=== PATIENT | male | born 1975 | race Caucasian/White ===

== ENCOUNTER 2018-10-25 08:00 | Outpatient (CLI) | payer BC ==
[2018-10-25 08:29] LABS: BASOPHILS # (AUTO) 0.1 10^3/uL (0.0-0.1); BASOPHILS % (AUTO) 0.9 %; EOSINOPHILS # (AUTO) 0.4 10^3/uL (0.0-0.7); EOSINOPHILS % (AUTO) 4.8 %; LYMPHOCYTES # (AUTO) 2.7 10^3/uL (1.5-3.5); LYMPHOCYTES % (AUTO) 35.3 %; MEAN CORPUSCULAR HEMOGLOBIN 28.4 pg (27.0-31.0); MEAN CORPUSCULAR HGB CONC 32.6 g/dL (32.0-36.0); MEAN PLATELET VOLUME 8.8 fL (7.4-11.4); MONOCYTES # (AUTO) 0.7 10^3/uL (0.0-1.0); NEUTROPHILS # (AUTO) 3.8 10^3/uL (1.5-6.6); NEUTROPHILS % (AUTO) 49.7 %; PLT - PLATELET COUNT 291 10^3/uL (130-450); RED BLOOD COUNT 4.93 10^6/uL (4.70-6.10); RED CELL DISTRIBUTION WIDTH 12.8 % (12.0-15.0); WHITE BLOOD COUNT 7.5 x10^3/uL (4.8-10.8)
[2018-10-25 08:52] LABS: ALBUMIN 4.2 g/dL (3.2-5.5); ALBUMIN/GLOBULIN RATIO 1.3 (1.0-2.2); ALKALINE PHOSPHATASE 41 IU/L (42-121); ALT ALANINE AMINOTRANSFERASE 18 IU/L (10-60); AST ASPARTATE AMINOTRANSFERASE 17 IU/L (10-42); BILIRUBIN,TOTAL 0.9 mg/dL (0.2-1.0); BUN - BLOOD UREA NITROGEN 18 mg/dL (6-20); CARBON DIOXIDE - CO2 29 mmol/L (21-32); CHLORIDE 99 mmol/L (101-111); CHOL/HDL RATIO 4.8 (<5.0); CHOLESTEROL 215 mg/dL; GFR - MDRD 82 (>89); GLUCOSE 97 mg/dL (70-100); HDL CHOLESTEROL 45 mg/dL; LDL CHOLESTEROL,CALCULATED 137 mg/dL; SODIUM 139 mmol/L (135-145); TOTAL PROTEIN 7.4 g/dL (6.7-8.2); VLDL CHOLESTEROL 33 mg/dL
== END 2018-10-25 23:59 | disposition home or self-care (01) ==
LOC: LAB 08:00
PROVIDERS: ATTEND Nurse Practitioner
DX: E78.1 Pure hyperglyceridemia (principal); I10 Essential (primary) hypertension; E29.1 Testicular hypofunction; R40.0 Somnolence; F41.8 Other specified anxiety disorders
CPT/HCPCS: 36415; 80053; 80061; 83721; 84403; 84443; 85025

== ENCOUNTER 2019-10-07 11:37 | Outpatient (CLI) | payer OTHER ==
[2019-10-07 12:27] LABS: BASOPHILS # (AUTO) 0.1 10^3/uL (0.0-0.1); BASOPHILS % (AUTO) 0.8 %; EOSINOPHILS # (AUTO) 0.3 10^3/uL (0.0-0.7); EOSINOPHILS % (AUTO) 4.6 %; HGB - HEMOGLOBIN 14.1 g/dL (14.0-18.0); LYMPHOCYTES # (AUTO) 1.9 10^3/uL (1.5-3.5); LYMPHOCYTES % (AUTO) 27.2 %; MEAN CORPUSCULAR HEMOGLOBIN 29.6 pg (27.0-31.0); MEAN CORPUSCULAR HGB CONC 34.1 g/dL (32.0-36.0); MEAN CORPUSCULAR VOLUME 86.8 fL (80.0-94.0); MEAN PLATELET VOLUME 9.3 fL (7.4-11.4); MONOCYTES # (AUTO) 0.7 10^3/uL (0.0-1.0); MONOCYTES % (AUTO) 10.2 %; NEUTROPHILS % (AUTO) 56.6 %; PLT - PLATELET COUNT 352 10^3/uL (130-450); RED BLOOD COUNT 4.77 10^6/uL (4.70-6.10); RED CELL DISTRIBUTION WIDTH 12.9 % (12.0-15.0); WHITE BLOOD COUNT 7.1 x10^3/uL (4.8-10.8)
[2019-10-07 12:44] LABS: ALBUMIN 4.1 g/dL (3.2-5.5); ALBUMIN/GLOBULIN RATIO 1.2 (1.0-2.2); ALKALINE PHOSPHATASE 47 IU/L (42-121); ALT ALANINE AMINOTRANSFERASE 20 IU/L (10-60); AST ASPARTATE AMINOTRANSFERASE 19 IU/L (10-42); BILIRUBIN,TOTAL 0.8 mg/dL (0.2-1.0); BUN - BLOOD UREA NITROGEN 12 mg/dL (6-20); CARBON DIOXIDE - CO2 29 mmol/L (21-32); CHLORIDE 99 mmol/L (101-111); CHOL/HDL RATIO 5.7 (<5.0); CHOLESTEROL 256 mg/dL; GLUCOSE 105 mg/dL (70-100); HDL CHOLESTEROL 45 mg/dL; LDL CHOLESTEROL,CALCULATED 180 mg/dL; SODIUM 138 mmol/L (135-145); TOTAL PROTEIN 7.4 g/dL (6.7-8.2); VALPROIC ACID (DEPAKOTE) 20.8 ug/mL; VLDL CHOLESTEROL 31 mg/dL
== END 2019-10-07 11:38 | disposition home or self-care (01) ==
LOC: LAB 11:37
PROVIDERS: ATTEND Nurse Practitioner
DX: I10 Essential (primary) hypertension (principal); E78.1 Pure hyperglyceridemia; Z79.899 Other long term (current) drug therapy; F41.8 Other specified anxiety disorders
CPT/HCPCS: 36415; 80053; 80061; 80164; 83721; 85025

== ENCOUNTER 2020-01-27 12:51 | Outpatient (CLI) | payer OTHER | END 2020-01-27 12:52 | disposition home or self-care (01) | LOC: COV 12:51 | PROVIDERS: ATTEND Family Medicine | DX: Z20.828 Contact with and (suspected) exposure to other viral communicable diseases (principal) ==

== ENCOUNTER 2020-02-02 12:47 | Outpatient (CLI) | payer OTHER | END 2020-02-02 12:48 | disposition home or self-care (01) | LOC: COV 12:47 | PROVIDERS: ATTEND Family Medicine | DX: Z20.828 Contact with and (suspected) exposure to other viral communicable diseases (principal) ==

== ENCOUNTER 2020-05-22 10:41 | Outpatient (CLI) | payer OTHER ==
[2020-05-22 12:31] LABS: BASOPHILS # (AUTO) 0.1 10^3/uL (0.0-0.1); BASOPHILS % (AUTO) 1.2 %; EOSINOPHILS # (AUTO) 0.4 10^3/uL (0.0-0.7); HGB - HEMOGLOBIN 14.7 g/dL (14.0-18.0); LYMPHOCYTES # (AUTO) 1.5 10^3/uL (1.5-3.5); LYMPHOCYTES % (AUTO) 19.6 %; MEAN CORPUSCULAR HEMOGLOBIN 28.9 pg (27.0-31.0); MEAN CORPUSCULAR HGB CONC 33.8 g/dL (32.0-36.0); MEAN CORPUSCULAR VOLUME 85.6 fL (80.0-94.0); MEAN PLATELET VOLUME 9.8 fL (7.4-11.4); MONOCYTES # (AUTO) 0.6 10^3/uL (0.0-1.0); MONOCYTES % (AUTO) 8.3 %; NEUTROPHILS % (AUTO) 65.2 %; PLT - PLATELET COUNT 348 10^3/uL (130-450); RED BLOOD COUNT 5.08 10^6/uL (4.70-6.10); WHITE BLOOD COUNT 7.6 x10^3/uL (4.8-10.8)
[2020-05-22 12:42] LABS: CREATININE 0.8 mg/dL (0.6-1.2)
== END 2020-05-22 23:59 | disposition home or self-care (01) ==
LOC: LAB.N 10:41
PROVIDERS: ATTEND Physician Assistant Medical
DX: R42 Dizziness and giddiness (principal); E29.1 Testicular hypofunction
CPT/HCPCS: 36415; 80048; 84153; 84403; 85025

== ENCOUNTER 2020-07-19 10:02 | Outpatient (CLI) | payer OTHER | END 2020-07-19 10:03 | disposition home or self-care (01) | LOC: LAB.N 10:02 | PROVIDERS: ATTEND Family Medicine | DX: Z01.812 Encounter for preprocedural laboratory examination (principal); Z20.822 Contact with and (suspected) exposure to COVID-19 ==

== ENCOUNTER 2020-08-09 | Emergency (ER) | payer OTHER ==
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
== END 2020-08-09 20:47 | disposition home or self-care (01) ==
CPT/HCPCS: 99283

== ENCOUNTER 2020-08-09 19:22 | Outpatient (CLI) | payer OTHER | END 2020-08-09 19:23 | disposition critical access hospital (66) | LOC: EMS 19:22 | DX: S61.512A Laceration without foreign body of left wrist, initial encounter (principal); S71.112A Laceration without foreign body, left thigh, initial encounter; W45.8XXA Other foreign body or object entering through skin, initial encounter; Y93.89 Activity, other specified | CPT/HCPCS: A0425; A0429 ==

== ENCOUNTER 2020-08-14 21:40 | Outpatient (CLI) | payer OTHER ==
[2020-08-14 21:56] LABS: BASOPHILS # (AUTO) 0.1 10^3/uL (0.0-0.1); BASOPHILS % (AUTO) 1.4 %; EOSINOPHILS # (AUTO) 0.4 10^3/uL (0.0-0.7); EOSINOPHILS % (AUTO) 4.5 %; HCT - HEMATOCRIT 41.1 % (42.0-52.0); HGB - HEMOGLOBIN 14.2 g/dL (14.0-18.0); LYMPHOCYTES # (AUTO) 1.5 10^3/uL (1.5-3.5); LYMPHOCYTES % (AUTO) 19.2 %; MEAN CORPUSCULAR HGB CONC 34.5 g/dL (32.0-36.0); MEAN CORPUSCULAR VOLUME 83.9 fL (80.0-94.0); MONOCYTES # (AUTO) 0.8 10^3/uL (0.0-1.0); MONOCYTES % (AUTO) 9.7 %; NEUTROPHILS # (AUTO) 5.1 10^3/uL (1.5-6.6); NEUTROPHILS % (AUTO) 64.8 %; PLT - PLATELET COUNT 354 10^3/uL (130-450); RED CELL DISTRIBUTION WIDTH 13.3 % (12.0-15.0); WHITE BLOOD COUNT 7.8 x10^3/uL (4.8-10.8)
== END 2020-08-14 21:41 | disposition home or self-care (01) ==
LOC: LAB 21:40
PROVIDERS: ATTEND Family Medicine
DX: E29.1 Testicular hypofunction (principal)
CPT/HCPCS: 36415; 81599; 84153; 84402; 84403; 85025

== ENCOUNTER 2021-02-10 15:31 | Outpatient (CLI) | payer OTHER ==
[2021-02-10 15:52] LABS: BASOPHILS # (AUTO) 0.1 10^3/uL (0.0-0.1); BASOPHILS % (AUTO) 1.8 %; EOSINOPHILS # (AUTO) 0.4 10^3/uL (0.0-0.7); EOSINOPHILS % (AUTO) 5.7 %; HCT - HEMATOCRIT 40.8 % (42.0-52.0); HGB - HEMOGLOBIN 13.6 g/dL (14.0-18.0); LYMPHOCYTES # (AUTO) 1.2 10^3/uL (1.5-3.5); MEAN CORPUSCULAR HEMOGLOBIN 28.3 pg (27.0-31.0); MEAN CORPUSCULAR HGB CONC 33.3 g/dL (32.0-36.0); MONOCYTES # (AUTO) 0.5 10^3/uL (0.0-1.0); NEUTROPHILS # (AUTO) 3.9 10^3/uL (1.5-6.6); NEUTROPHILS % (AUTO) 63.2 %; PLT - PLATELET COUNT 337 10^3/uL (130-450); RED CELL DISTRIBUTION WIDTH 13.5 % (12.0-15.0); WHITE BLOOD COUNT 6.1 x10^3/uL (4.8-10.8)
[2021-02-10 16:20] LABS: ALBUMIN 4.2 g/dL (3.2-5.5); ALBUMIN/GLOBULIN RATIO 1.3 (1.0-2.2); ALKALINE PHOSPHATASE 55 IU/L (42-121); ALT ALANINE AMINOTRANSFERASE 18 IU/L (10-60); AST ASPARTATE AMINOTRANSFERASE 15 IU/L (10-42); BILIRUBIN,TOTAL 0.3 mg/dL (0.2-1.0); BUN - BLOOD UREA NITROGEN 9 mg/dL (6-20); CARBON DIOXIDE - CO2 28 mmol/L (21-32); CHLORIDE 100 mmol/L (101-111); CHOLESTEROL 199 mg/dL; CREATININE 0.8 mg/dL (0.6-1.2); GFR - MDRD 106 (>89); GLUCOSE 104 mg/dL (70-100); HDL CHOLESTEROL 50 mg/dL; LDL CHOLESTEROL,CALCULATED 111 mg/dL; LDL/HDL RATIO 2.2 (<3.6); POTASSIUM 3.9 mmol/L (3.5-5.0); SODIUM 139 mmol/L (135-145); TOTAL PROTEIN 7.4 g/dL (6.7-8.2); TRIGLYCERIDES 190 mg/dL; URIC ACID 7.6 mg/dL (2.6-7.2); VLDL CHOLESTEROL 38 mg/dL
[2021-02-10 16:31] LABS: CRP - C-REACTIVE PROTEIN < 1.0 mg/dL (0-1.0); THYROID STIMULATING HORMONE 1.35 uIU/mL (0.34-5.60)
== END 2021-02-10 15:32 | disposition home or self-care (01) ==
LOC: LAB 15:31
PROVIDERS: ATTEND Family Medicine
DX: M10.9 Gout, unspecified (principal); E78.1 Pure hyperglyceridemia; I10 Essential (primary) hypertension; F41.8 Other specified anxiety disorders
CPT/HCPCS: 36415; 80053; 80061; 83721; 84443; 84550; 85025; 85651; 86140

== ENCOUNTER 2021-10-02 04:30 | Emergency (ER) | payer SELFPAY ==
[2021-10-02] MEDS: HYDROcod/ACETAM 5/325 MG TABLET PO STA (06:03)
--- NOTE | 2021-10-02 06:05 | ED Physician Documentation ---
History of Present Illness - Stated complaint Stated Complaint: LT FOOT PAIN/BODY PX/COUGHING - Chief complaint Chief Complaint: Resp - History obtained from History obtained from: Patient - Additonal information Additional information: Patient is a 46-year-old maleWith history of hypertension and gout presenting for evaluation of right-sided rib pain from coughing For 1 week and left great toe pain Present for 3 to 4 days. Patient has a history of gout. He denies any trauma. He does have a history of getting gout in the left great toe region. He does take allopurinol. With this flareup he has been trying ibuprofen without improvement. Additionally he was diagnosed with COVID 2-1/2 weeks ago. He had a cough without but it went away however a cough returned last week. The cough is nonproductive. He reports discomfort in the right rib area every time he coughs. He denies fever, chest pain, difficulty breathing, abdominal pain, vomiting.He denies leg swelling or pain Other than the previously mentioned left foot. Review of Systems Constitutional: denies: Fever Nose: denies: Congestion Cardiac: reports: Other (Right rib pain when coughing). denies: Chest pain / pressure Respiratory: reports: Cough. denies: Dyspnea GI: denies: Abdominal Pain, Vomiting : denies: Dysuria Musculoskeletal: reports: Extremity pain (Left foot) Neurologic: denies: Syncope PD PAST MEDICAL HISTORY - Past Medical History Past Medical History: Yes Cardiovascular: Hypertension, High cholesterol Psych: Depression, Anxiety - Past Surgical History Past Surgical History: Yes - Present Medications Home Medications: Ambulatory Orders Medication Instructions Recorded Confirmed Losartan [Cozaar] 50 mg PO DAILY 08/09/20 08/09/20 QUEtiapine [SEROquel] 25 mg PO DAILY 08/09/20 08/09/20 Venlafaxine ER [Effexor ER] 75 mg PO DAILY 08/09/20 08/09/20 amLODIPine [Norvasc] 10 mg PO DAILY 08/09/20 08/09/20 Oxycodone HCl/Acetaminophen 1 each PO Q6H PRN #10 tablet 10/02/21 [Percocet 5-325 mg Tablet] predniSONE [Deltasone] 20 mg PO [id number] #21 tab 10/02/21 - Allergies Allergies/Adverse Reactions: Allergies Allergy/AdvReac Type Severity Reaction Status Date / Time Sulfa (Sulfonamide AdvReac Rash Verified 10/02/21 04:48 Antibiotics) - Social History Does the pt smoke?: No Smoking Status: Never smoker Does the pt drink ETOH?: Yes Does the pt have substance abuse?: No - Immunizations Immunizations are current?: Yes - POLST Patient has POLST: No PD ED PE NORMAL - General General: Alert and oriented X 3, No acute distress, Well developed/nourished - HEENT HEENT: Atraumatic - Neck Neck: Supple, no meningeal sign - Cardiac Cardiac: RRR, No murmur, Strong equal pulses, Other (Mild right chest wall tenderness, no crepitus, no rash) - Respiratory Respiratory: No respiratory distress, Clear bilaterally - Extremities Extremities: No calf tenderness / cord, Other (Mild tenderness and swellingTo left MTP with faint overlying erythema and warmth, intact distal pulses, motor and sensation grossly intact to the foot) - Neuro Neuro: No motor deficit, No sensory deficit PD ED PE EXPANDED - Extremities Feet visual: 1 - rash, swelling, tenderness - Visual Whole body visual: 1 - tenderness Results - Vitals Vitals: Vital Signs - 24 hr 10/02/21 10/02/21 04:44 07:27 Temperature 35.9 C L 36.9 C Heart Rate 93 77 Respiratory 17 18 Rate Blood Pressure 152/82 H 136/78 H O2 Saturation 98 96 Oxygen O2 Source Room air PD MEDICAL DECISION MAKING - ED course Complexity details: reviewed results, d/w patient ED course: Patient presenting for evaluation of right-sided rib pain and left foot pain. Patient recently had COVID and has still had a persistent cough. Chest x-ray is negative for pneumonia. No signs of acute rib fracture Or pneumothorax. Hist ory and exam does not suggest a cardiac etiology. Patient is PERC negative. Patient additionally has a flareup of gout. No signs of trauma Or infection. Will place patient on steroids as well as Short course of narcotic pain medication to help with his symptoms. Patient is aware of need for follow-up with primary care doctor and aware of return precautions. Departure - Departure Disposition: Home, Self Care Clinical Impression: Cough, Rib pain on right side Gout attack Qualifiers: Gout site: toe Gout etiology: unspecified cause Laterality: left Qualified Code(s): M10.9 - Gout, unspecified Condition: Stable Instructions: ED Chest Pain Costochondritis, ED Arthritis Gout Prescriptions: predniSONE [Deltasone] 20 mg PO [id number] #21 tab Oxycodone HCl/Acetaminophen [Percocet 5-325 mg Tablet] 1 each PO Q6H PRN #10 tablet PRN Reason: pain Comments: [place] - You have been evaluated for a cough and discomfort to the right side of your chest when you cough. Your chest x-ray does not show pneumonia. Your chest x-ray does show old rib fractures but no new ones are seen. You are also having a flareup of your gout. We will prescribe narcotic pain medication and steroids that will help with this. These medications may also help with your cough and rib pain. Please use these medications as prescribed.Please return to the emergency department with any worsening Or new symptoms.We will send the prescriptions to [facility] in [place]. I am prescribing a short course of narcotic pain medication for you. These are potentially dangerous and addictive medications that should be used carefully. These medications may constipate you. Take an xuvk-qkr-htiercf stool softener (docusate) twice daily with plenty of water while taking these medications. If you go 24 hours without a bowel movement, take rsvp-dwi-[id number] miralax, per package instructions. Do not drink or drive while taking these medications. If you received narcotic or sedating medications while in the emergency department, do not drive for 24 hours. Store this medication in a safe, secure place and out of reach of children. It is a violation of federal law to give or sell this medication to another person or to use in a manner other than prescribed. The ED will not refill narcotic prescriptions, including prescriptions lost or stolen. To dispose of unwanted medications: 1. [facility] [address] in [place] has a medication drop box. They accept prescription medications (in pill form) Thursday through Thursday 9:00 a.m. to 5:00 p.m. 2. The [employer] [place] [employer] accepts prescription medications (in pill form only) for disposal year round. Call for more information. 3. Contact the [facility] for the next [facility] sponsored prescription drug collection event. , [phone], or [phone]; Note that many narcotic pain relievers also contain Tylenol/acetaminophen. Ple ase ensure that your total dose of acetaminophen from all sources does not exceed 3 g (3000 mg) per day. Discharge Date/Time: 10/02/21 07:28
[2021-10-02 07:28] VITALS: BP 136/78
--- NOTE | 2021-10-02 08:10 | XRAY Report ---
PROCEDURE: Chest 1 View X-Ray INDICATIONS: cough TECHNIQUE: One view of the chest was acquired. COMPARISON: None FINDINGS: Surgical changes and devices: None. Lungs and pleura: No pleural effusions or pneumothorax. Lungs are clear. Elevated right hemidiaphra gm of uncertain etiology but possibly related to diaphragmatic eventration. Mediastinum: Mediastinal contours appear normal. Heart size is normal. Bones and chest wall: Chronic right rib fractures which have healed in deformity. No suspicious bony lesions. Overlying soft tissues appear unremarkable. IMPRESSION: No acute cardiopulmonary disease process. Reviewed by: Opal Julien MD, PhD on 10/02/2021 8:08 AM PDT Approved by: Opal Julien MD, PhD on 10/02/2021 8:08 AM PDT Station ID: [id number]
== END 2021-10-02 07:28 | disposition home or self-care (01) ==
LOC: ED 04:30
DX: M10.9 Gout, unspecified (principal); R07.81 Pleurodynia; I10 Essential (primary) hypertension
CPT/HCPCS: 71045; 99283; 99284; A9270

== ENCOUNTER 2023-07-26 08:40 | Emergency (ER) | payer OTHER ==
[2023-07-26 09:15] LABS: BILIRUBIN,URINE NEGATIVE (NEGATIVE); GLUCOSE, URINE (UA) NEGATIVE (NEGATIVE); KETONES,URINE (UA) NEGATIVE (NEGATIVE); LEUKOCYTE ESTERASE, URINE SMALL (NEGATIVE); NITRITE,URINE NEGATIVE (NEGATIVE); OCCULT BLOOD,URINE SMALL (NEGATIVE); PROTEIN,URINE NEGATIVE (NEGATIVE); UROBILINOGEN,URINE 0.2 (NORMAL) E.U./dL (NORMAL)
[2023-07-26 09:18] LABS: CLARITY,URINE CLEAR (CLEAR)
[2023-07-26 09:31] LABS: BACTERIA,URINE None Seen /HPF (None Seen); EPITHELIAL CELLS,UR RARE Renal Tubular /HPF (<= Few); RBC,URINE None Seen /HPF (0-5); SQUAMOUS EPITHELIAL CELL,UR NONE SEEN (<= Few); WBC,URINE 0-3 /HPF (0-3)
--- NOTE | 2023-07-26 09:31 | ED Physician Documentation ---
History of Present Illness - Stated complaint Stated Complaint: - Chief complaint Chief Complaint: UTI - History obtained from History obtained from: Patient - Additonal information Additional information: The patient comes to the emergency department chief complaint of dysuria, low back pain, body aches, and chills that started overnight. He states he normally urinates twice during the night but last night he had to go to the bathroom 15 times because of constant urge to urinate. He states that the urine was pink when he urinated and showed me a video of what it look like. He states he took his temperature and found it to be 100.4. The patient is not sexually active, he states. No penile discharge or other symptoms prior to onset of dysuria. Patient no laterality to the back pain. No history of kidney stones. No other complaints at this time. PD PAST MEDICAL HISTORY - Past Medical History Past Medical History: Yes Cardiovascular: Hypertension, High cholesterol Psych: Depression, Anxiety - Past Surgical History Past Surgical History: Yes - Present Medications Home Medications: Ambulatory Orders Medication Instructions Recorded Confirmed Losartan [Cozaar] 50 mg PO DAILY 08/09/20 08/09/20 QUEtiapine [SEROquel] 25 mg PO DAILY 08/09/20 08/09/20 Venlafaxine ER [Effexor ER] 75 mg PO DAILY 08/09/20 08/09/20 amLODIPine [Norvasc] 10 mg PO DAILY 08/09/20 08/09/20 Oxycodone HCl/Acetaminophen 1 each PO Q6H PRN #10 tablet 10/02/21 [Percocet 5-325 mg Tablet] predniSONE [Deltasone] 20 mg PO [id number] #21 tab 10/02/21 Oxycodone HCl [Roxicodone] 5 mg PO Q6H PRN #10 tablet 10/03/21 Nitrofurantoin [Macrobid] 100 mg PO BID #14 cap 07/26/23 Phenazopyridine [Pyridium] 200 mg PO TID 6 Days #36 tablet 07/26/23 - Allergies Allergies/Adverse Reactions: Allergies Allergy/AdvReac Type Severity Reaction Status Date / Time Sulfa (Sulfonamide AdvReac Rash Verified 07/26/23 08:47 Antibiotics) - Social History Does the pt smoke?: No Smoking Status: Never smoker Does the pt drink ETOH?: Yes Does the pt have substance abuse?: No - Immunizations Immunizations are current?: Yes - POLST Patient has POLST: No PD ED PE NORMAL - Vitals Vital signs reviewed: Yes - General General: Alert and oriented X 3, No acute distress, Well developed/nourished - HEENT HEENT: Atraumatic, PERRL, EOMI, Moist mucous membranes - Neck Neck: Supple, no meningeal sign - Cardiac Cardiac: RRR, No murmur, Strong equal pulses - Respiratory Respiratory: No respiratory distress, Clear bilaterally - Abdomen Abdomen: Soft, Non tender, Non distended - Back Back: No CVA TTP - Derm Derm: Normal color, Warm and dry, No rash - Extremities Extremities: No deformity, No edema - Neuro Neuro: Alert and oriented X 3 - Psych Psych: Normal mood, Normal affect Results - Vitals Vitals: Vital Signs - 24 hr 07/26/23 08:44 Temperature 37.6 C Heart Rate 97 Respiratory 20 Rate Blood Pressure 151/87 H O2 Saturation 99 Oxygen O2 Source Room air - Labs Labs: Laboratory Tests 07/26/23 09:00 Urine Color STRAW Urine Clarity CLEAR Urine pH 7.0 Ur Specific [place] <=1.005 Urine Protein NEGATIVE Urine Glucose (UA) NEGATIVE Urine Ketones NEGATIVE Urine Occult Blood SMALL H Urine Nitrite NEGATIVE Urine Bilirubin NEGATIVE Urine Urobilinogen 0.2 (NORMAL) Ur Leukocyte Esterase SMALL H Urine RBC None Seen Urine WBC 0-3 Ur Epithelial Cells RARE Renal Tubular Ur Squamous Epith Cells NONE SEEN Urine Bacteria None Seen Ur Microscopic Review INDICATED Urine Culture Comments INDICATED PD Medical Decision Making - ED course Complexity details: reviewed results, re-evaluated patient, considered differential, d/w patient ED course: The patient was treated symptomatically with Tylenol and Pyridium and worked up with urinalysis, Which was positive for blood, leukocyte esterase, and white blood cells. Given the patient's symptoms, I felt that he should be treated for UTI. I did not feel his symptoms were indicative of a kidney stone at this time. Patient was given a dose of Macrobid here in the emergency department and prescriptions for Macrobid and Pyridium were sent to the pharmacy of his choice. We discussed the usual indications for return. Departure - Departure Disposition: 01 Home, Self Care Clinical Impression: UTI (urinary tract infection) Qualifiers: Urinary tract infection type: acute cystitis Hematuria presence: with hematuria Qualified Code(s): N30.01 - Acute cystitis with hematuria Condition: Stable Instructions: ED UTI Cystitis Male Prescriptions: Nitrofurantoin [Macrobid] 100 mg PO BID #14 cap Phenazopyridine [Pyridium] 200 mg PO TID 6 Days #36 tablet Comments: Your urinalysis is mildly positive for infection, but given your symptoms, it is reasonable to treat presumptively before waiting for culture. Your symptoms are not indicative of a kidney stone at this time. You have been given your first dose of antibiotics here in the emergency department and a prescription for the same, as well as for Pyridium, has been electronically transmitted to the [facility] pharmacy in [place]. Please pick these up this morning and take your next dose of antibiotic this afternoon. Be sure to drink plenty of water to maximize delivery of antibiotics to your bladder. Please follow-up with your primary doctor if needed.
[2023-07-26] MEDS: NITROFURANTOIN MACRO 100 MG CAPSULE PO STA (10:00)
[2023-07-26] MEDS: ACETAMINOPHEN 500 MG TABLET PO STA (10:00)
[2023-07-26] MEDS: PHENAZOPYRIDINE 100 MG TABLET PO STA (10:00)
[2023-07-26 10:08] VITALS: BP 122/82; O2SAT 100
== END 2023-07-26 10:05 | disposition home or self-care (01) ==
LOC: ED 08:40
DX: N30.01 Acute cystitis with hematuria (principal)
CPT/HCPCS: 81001; 87086; 99283; A9270; 81003; 87077; 87181

== ENCOUNTER 2023-08-07 17:06 | Outpatient (CLI) | payer OTHER ==
[2023-08-07 21:17] LABS: ALBUMIN/GLOBULIN RATIO 1.3 (1.0-2.2); ALKALINE PHOSPHATASE 41 IU/L (42-121); ALT ALANINE AMINOTRANSFERASE 14 IU/L (10-60); AST ASPARTATE AMINOTRANSFERASE 13 IU/L (10-42); BILIRUBIN,TOTAL 0.4 mg/dL (0.2-1.0); BUN - BLOOD UREA NITROGEN 9 mg/dL (6-20); CALCIUM 9.5 mg/dL (8.5-10.3); CARBON DIOXIDE - CO2 33 mmol/L (21-32); CHLORIDE 103 mmol/L (101-111); CHOL/HDL RATIO 2.9 (<5.0); CHOLESTEROL 150 mg/dL; CREATININE 0.9 mg/dL (0.6-1.3); GFR - MDRD 91 (>89); GLUCOSE 81 mg/dL (74-104); HDL CHOLESTEROL 52 mg/dL; LDL CHOLESTEROL,CALCULATED 79 mg/dL; LDL/HDL RATIO 1.5 (<3.6); POTASSIUM 4.2 mmol/L (3.5-4.5); SODIUM 140 mmol/L (135-145); TRIGLYCERIDES 97 mg/dL (48-352); URIC ACID 7.3 mg/dL (4.4-7.6); VLDL CHOLESTEROL 19 mg/dL
[2023-08-07 21:26] LABS: THYROID STIMULATING HORMONE 0.66 uIU/mL (0.34-5.60)
[2023-08-07 21:35] LABS: BASOPHILS # (AUTO) 0.1 10^3/uL (0.0-0.1); BASOPHILS % (AUTO) 1.2 %; EOSINOPHILS # (AUTO) 0.2 10^3/uL (0.0-0.7); EOSINOPHILS % (AUTO) 3.9 %; HGB - HEMOGLOBIN 13.3 g/dL (14.0-18.0); LYMPHOCYTES # (AUTO) 1.5 10^3/uL (1.5-3.5); MEAN CORPUSCULAR HEMOGLOBIN 29.6 pg (27.0-31.0); MEAN CORPUSCULAR HGB CONC 33.3 g/dL (32.0-36.0); MEAN CORPUSCULAR VOLUME 88.9 fL (80.0-94.0); MEAN PLATELET VOLUME 9.1 fL (7.4-11.4); MONOCYTES # (AUTO) 0.4 10^3/uL (0.0-1.0); MONOCYTES % (AUTO) 7.3 %; NEUTROPHILS # (AUTO) 3.3 10^3/uL (1.5-6.6); NEUTROPHILS % (AUTO) 59.4 %; PLT - PLATELET COUNT 394 10^3/uL (130-450); RED CELL DISTRIBUTION WIDTH 12.7 % (12.0-15.0); WHITE BLOOD COUNT 5.6 x10^3/uL (4.8-10.8)
== END 2023-08-07 17:07 | disposition home or self-care (01) ==
LOC: LAB.N 17:06
PROVIDERS: ATTEND Nurse Practitioner Family
DX: E78.1 Pure hyperglyceridemia (principal); Z68.31 Body mass index [BMI] 31.0-31.9, adult; Z86.79 Personal history of other diseases of the circulatory system; M10.9 Gout, unspecified; R68.82 Decreased libido
CPT/HCPCS: 36415; 80053; 80061; 83721; 84402; 84403; 84443; 84550; 85025

== ENCOUNTER 2023-08-24 09:30 | Outpatient (CLI) | payer OTHER ==
[2023-08-24 12:26] LABS: BASOPHILS # (AUTO) 0.1 10^3/uL (0.0-0.1); BASOPHILS % (AUTO) 1.9 %; EOSINOPHILS # (AUTO) 0.3 10^3/uL (0.0-0.7); EOSINOPHILS % (AUTO) 5.4 %; HCT - HEMATOCRIT 38.3 % (42.0-52.0); HGB - HEMOGLOBIN 13.3 g/dL (14.0-18.0); LYMPHOCYTES # (AUTO) 2.2 10^3/uL (1.5-3.5); LYMPHOCYTES % (AUTO) 45.2 %; MEAN CORPUSCULAR HEMOGLOBIN 30.3 pg (27.0-31.0); MEAN CORPUSCULAR HGB CONC 34.7 g/dL (32.0-36.0); MEAN CORPUSCULAR VOLUME 87.2 fL (80.0-94.0); MEAN PLATELET VOLUME 10.2 fL (7.4-11.4); MONOCYTES # (AUTO) 0.5 10^3/uL (0.0-1.0); MONOCYTES % (AUTO) 10.5 %; NEUTROPHILS # (AUTO) 1.8 10^3/uL (1.5-6.6); NEUTROPHILS % (AUTO) 36.8 %; PLT - PLATELET COUNT 278 10^3/uL (130-450); RED BLOOD COUNT 4.39 10^6/uL (4.70-6.10); RED CELL DISTRIBUTION WIDTH 13.3 % (12.0-15.0); WHITE BLOOD COUNT 4.8 x10^3/uL (4.8-10.8)
[2023-08-24 13:40] LABS: FERRITIN 25.2 ng/mL (23.9-336.2)
== END 2023-08-24 09:31 | disposition home or self-care (01) ==
LOC: LAB.N 09:30
PROVIDERS: ATTEND Nurse Practitioner Family
DX: D64.9 Anemia, unspecified (principal)
CPT/HCPCS: 36415; 82607; 82728; 82746; 83540; 84466; 85025